=== PATIENT | male | born 1950 | race Caucasian/White ===

== ENCOUNTER 2018-01-31 01:47 | Inpatient (IN) | payer OTHER ==
[~2018-01-31] VITALS: Ht 188 cm; Wt 108.4 kg
[2018-01-31 01:48] VITALS: BP 143/77
[2018-01-31] MEDS ORDERED: AMBIEN 10 MG TA10 MG PO (01:54)
[2018-01-31 02:29] LABS: HEMATOCRIT 50.1 % (42.0-52.0); MCH 29.3 pg (26.0-34.0); MCV 86.3 fL (80.0-100.0); MPV 10.4 fl. (7.2-11.1); NUCLEATED RBCS 0 /100WBC; PLATELET COUNT* 239 thou/uL (150-400); RBC 5.81 mil/uL (4.50-6.00); RDW-CV 13.9 % (10.5-14.5); WBC 14.8 thou/uL (4.0-11.0)
[2018-01-31 02:34] LABS: ANION GAP 16 mmol/L (7-16); BUN 19 mg/dL (7-18); CALCIUM 9.2 mg/dL (8.5-10.1); CHLORIDE 103 mmol/L (98-107); CO2 20 mmol/L (21-32); CREATININE 1.2 mg/dL (0.6-1.3); GLUCOSE 162 mg/dL (70-99); POTASSIUM 4.4 mmol/L (3.5-5.1); SODIUM 139 mmol/L (136-145)
[2018-01-31 02:40] LABS: ALBUMIN 4.3 g/dL (3.4-5.0); ALKALINE PHOSPHATASE 106 U/L (46-116); APTT 25.4 Seconds (25.0-31.3); LIPASE 114 U/L (73-393); SGOT 22 U/L (15-37); SGPT 35 U/L (30-65); TOTAL BILIRUBIN 0.5 mg/dL (<0.1-1.0); TROPONIN-I LEVEL <0.06 ng/mL (<0.06)
[2018-01-31 04:11] LABS: ABSOLUTE EOSINOPHILS 0.1 thou/uL (0.0-0.7); ABSOLUTE LYMPHOCYTES 0.7 thou/uL (0.8-5.3); ABSOLUTE MONOCYTES 0.4 thou/uL (0.0-1.2); ABSOLUTE NEUTROPHILS 13.5 thou/uL (1.6-8.1); ANISOCYTOSIS Occasional; PLATELET ESTIMATE ADEQUATE; TOXIC GRANULATION 1+
[2018-01-31 05:04] LABS: URINE BILIRUBIN NEGATIVE (Negative); URINE BLOOD TRACE (Negative); URINE CLARITY CLEAR; URINE COLOR YELLOW; URINE GLUCOSE-RANDOM NEGATIVE (Negative); URINE KETONES NEGATIVE (Negative); URINE LEUKOCYTES-REFLEX NEGATIVE (Negative); URINE NITRITE-REFLEX NEGATIVE (Negative); URINE PROTEIN NEGATIVE (Negative); URINE SPECIFIC GRAVITY <= 1.005 (1.005-1.030); URINE UROBILINOGEN 0.2 E.U./dl (0.2-1.0)
[2018-01-31 07:36] VITALS: BP 102/65
[2018-01-31 09:17] VITALS: BP 130/66
--- NOTE | 2018-01-31 11:10 | EKG ---
[place] [address] ELECTROCARDIOGRAM REPORT Name: HARSHAL HUMPHRIES Room: [address] ADM IN M.R.#: [id number] Admission: 01/31/18 Attend Phys: Jing Grey Discharge: Date of : 50 Report #: [id number] THIS REPORT FOR: //name// [facility] ED Test Date: 2018-01-31 Test Time: 02:25:41 Pat Name: HARSHAL HUMPHRIES Department: Room: [facility] Gender: M Side Stapler: RADHA : 1950 Requested By: Odilia Oden Order Number: [id number] MD: Glenn Bonilla Measurements Intervals [place] Rate: 78 P: 60 TN: 219 QRS: 50 QRSD: 87 T: 42 QT: 396 QTc: 452 Interpretive Statements Sinus rhythm Atrial premature complexes Borderline prolonged TN interval No previous ECG available for comparison Electronically Signed On 01-31-2018 11:10:42 MANAGER [employer]ENTION by Glenn Bonilla [email or web address] <ELECTRONICALLY SIGNED> By: Glenn Bonilla MD, [facility] 01/31/18 1110 4 Glenn Bonilla MD, [facility] /EPI
--- NOTE | 2018-01-31 13:54 | NUR ---
SW met with pt to complete initial assessment, introduce self, and SW role. Pt and dtr present. Pt alert, oriented, pleasant. Pt lives at home with . Pt works outside of home and is independent with mobility and ADLs. No needs expressed at this time. SW to continue to follow to assist with safe dc planning.
[2018-01-31] MEDS ORDERED: ZOFRAN ODT4 MG PO (15:38)
[2018-01-31 16:05] VITALS: BP 130/66
--- NOTE | 2018-01-31 17:13 | NUR ---
ASSESSMENT COMPLETE. PT ADMITTED WITH ENTEROCOLITIS. PT STATES HE THINKS HE GOT FOOD POISONING. PT GIVEN IV FLUIDS AND IV NAUSEA MEDICATION. PT TOLERATING LIQUID DIET THROUGHOUT THE DAY. PT TO DC IF TOLERATING SOFT/FIBER RESTRICT DIET AT DINNER. PT IS ALERT AND ORIENTED X4. DENIES N/V. VITALS STABLE. IV FLAGYL AND CIPRO GIVEN. PT IS UP AD LORETO WITH STEADY GAIT. SEE ASSESSMENT AND VITALS FOR OTHER DETAILS. CALL LIGHT WITHIN REACH, WILL CONTINUE PLAN OF CARE
--- NOTE | 2018-01-31 18:10 | NUR ---
PT DISCHARGED AT 1810 WITH SPOUSE VIA PERSONAL VEHICLE. IV DC'S WITHOUT DIFFICULTIES. DISCHARGE AND PRESCRIPTIONS SENT WITH PT. PT COMMUNICATES UNDERSTANDING OF DC INSTRUCTIONS. ALL BELONGINGS SENT WITH PT.
[2018-01-31 18:13] VITALS: BP 130/66
== END 2018-01-31 18:10 | disposition home or self-care (01) | DRG 872 ==
LOC: M.ERS 01:47 → M.3W 05:48 → M.TBA-ER 05:48 → M.3W 07:46
PROVIDERS: Personal Emergency Response Attendant; ADMIT Internal Medicine
DX: A41.89 Other specified sepsis (principal); A08.4 Viral intestinal infection, unspecified; E86.0 Dehydration; G47.00 Insomnia, unspecified; K21.9 Gastro-esophageal reflux disease without esophagitis; Z98.42 Cataract extraction status, left eye; Z98.41 Cataract extraction status, right eye; Z87.891 Personal history of nicotine dependence

== ENCOUNTER → 2019-12-28 | Outpatient (CLI) | payer MEDICARE ==
[~2019-12-28] MED LIST: AMBIEN 10 MG TA10 MG PO; ZOFRAN ODT4 MG PO
--- NOTE | 2019-12-28 18:37 | CARDNUC ---
[place] [address] CARDIAC NUCLEAR IMAGING REPORT Name: YANDELMARK Room: [facility]#: [id number] Admission: 12/28/19 Attend Phys: Rani Griffin, Discharge: Date of : 50 Date of Service: 12/28/19 1837 Report #: [id number] THIS REPORT FOR: cc: MAXX VO MD, HEATHER L. MD Liston, Michael J. MD [facility] ~ APPROVED REPORT Imaging Protocol: Stress Tc-99m/Rest Tc-99m 1 day Study performed: 12/28/2019 07:45:00 Indication: Chest pain, Dyspnea, Abnormal EKG Patient Location: Out-Patient Stress Tech: Ashley Flores Stress Nurse: Jennifer Meza RN Ht: 6 ft 1 in Wt: 246 lbs BSA: 2.35 m2 BMI: 32.45 Medical History Medical History: Hyperlipidemia Medications: no cardiac meds Allergies: No known drug allergies Cardiac Risk Factors: Age, FHX of CAD, Hyperlipidemia, Past Smoker Exercise History: Physically active Resting Data Rest SPECT myocardial perfusion imaging was performed in supine position 30 minutes following the intravenous injection of 10.7 mCi of Tc-99m Sestamibi. Time of rest injection: 08:05 The images were gated to evaluate regional wall motion and calculate left ventricular ejection fraction. Administration Route: IV Administration Site: Right AC Exercise Stress At peak stress, the patient was injected intravenously with 33.5mCi of Tc-99m Sestamibi. Time of stress injection: 10:00 Administration Route: IV Administration Site: Right AC Heart Rate at time of stress injection: 141 [place] [address] CARDIAC NUCLEAR IMAGING REPORT Name: HARSHAL HUMPHRIES Room: [facility]#: [id number] Admission: 12/28/19 Attend Phys: Rani Griffin, Discharge: Date of : 50 Date of Service: 12/28/19 1837 Report #: [id number] Patient continued to exercise for 2 minute(s). Gated Stress SPECT was performed 30 minutes after stress injection. The images were gated to evaluate regional wall motion and calculate left ventricular ejection fraction. Prone imaging was performed. Stress Test Details Stress Test: Exercise stress testing was performed using a [place] protocol. HR Max Heart Rate (APMHR): 151 bpm Resting HR: 69 bpm Target HR (85% APMHR): 128 bpm Max HR Achieved: 141 bpm % of APMHR: 93 Recovery HR: 100 bpm BP Resting BP: 134/80 mmHg Max BP: 248/77 mmHg Recovery BP: 175/91 mmHg ECG Resting ECG: Sinus Rhythm Stress ECG: Sinus Tachycardia ST Change: None Arrhythmia: None Recovery ECG: Sinus Rhythm Recovery ST Change: None Recovery Arrhythmia: None Clinical Reason for Termination: Maximal effort Exercise duration: 9 min 52 sec Exercise capacity: 11.58 METs Overall Exercise Capacity for Age: Superior Functional Aerobic Impairment 93% The patient tolerated standard [place] protocol exercise without significant cardiac symptoms. Stress ECG Conclusion The baseline twelve-lead EKG shows sinus rhythm without significant ST segment abnormality. EKGs obtained during and post exercise show sinus rhythm and sinus tachycardia with no significant ST segment changes when compared to baseline. There were occasional unifocal premature ventricular contractions [place] [address] CARDIAC NUCLEAR IMAGING REPORT Name: HARSHAL HUMPHRIES Room: [facility]#: [id number] Admission: 12/28/19 Attend Phys: Rani Griffin, Discharge: Date of : 50 Date of Service: 12/28/19 1837 Report #: [id number] Study Quality Study: Good Artifact: Mild Diaphragmatic artifact Study Data At rest, the left ventricular ejection fraction was 62%.. Post stress, the left ventricular ejection was 59%.. TID = 0.84. Perfusion Perfusion images obtained in the supine position at rest and post exercise stress show photopenia of the inferior wall that resolves completely with post-rest prone imaging suggesting diaphragmatic attenuation artifact. No other significant fixed or reversible defects were identified. Wall Motion Normal left ventricular wall motion. Nuclear Conclusion ECG Findings: negative for ischemia Clinical Findings: negative for ischemia Nuclear Findings: negative for ischemia Exercise Capacity: normal Left Ventricular Function: normal Risk Study: low Perfusion study show no defect to suggest infarct or ischemia. Left ventricular systolic function appears normal on gated studies. This is a low risk study. <Conclusion> The baseline twelve-lead EKG shows sinus rhythm without significant ST segment abnormality. EKGs obtained during and post exercise show sinus rhythm and sinus tachycardia with no significant ST segment changes when compared to baseline. There were occasional unifocal premature ventricular contractions with exercise. <ELECTRONICALLY SIGNED> By: Troy Cardenas MD, FACC 12/28/191836 36 36 Troy Cardenas MD, FACC /INF
== END ==
LOC: M.NUC 12-19 11:13
PROVIDERS: ATTEND Internal Medicine
DX: R94.31 Abnormal electrocardiogram [ECG] [EKG] (principal); R07.89 Other chest pain